=== PATIENT | male | born 1975 | race Caucasian/White ===

== ENCOUNTER 2017-05-05 10:04 | Inpatient (IN) | payer OTHER ==
[2017-05-05] VITALS (11 sets, daily range): BP systolic 112–152; BP diastolic 78–90
[~2017-05-05] VITALS: Ht 180.3 cm; Wt 75.7 kg
--- NOTE | ~2017-05-05 | EKG ---
[place] [address] [address] ELECTROCARDIOGRAM REPORT Name: LAURO OCONNELL Room #: 245-P ADM IN M.R.#: [id number] Admission: 05/05/17 Attend Phys: Donny Baptiste MD Discharge: Date of : 77 Report #: [id number] THIS REPORT FOR: //name// [facility] ED Test Date: 2017-05-05 Test Time: 10:11:38 Pat Name: LAURO OCONNELL Department: Room: [facility] Gender: M Hot Roller: ACE : 1975 Requested By: Yuri Berry Order Number: [id number] MD: Femi Cates Measurements Intervals [place] Rate: 134 P: 53 AR: 129 QRS: -78 QRSD: 86 T: 34 QT: 292 QTc: 436 Interpretive Statements Sinus tachycardia Atrial premature complexes Left anterior fascicular block Abnormal R-wave progression, late transition No previous ECG available for comparison Electronically Signed On 05-06-2017 9:49:38 CDT by Femi Cates [email or web address] <ELECTRONICALLY SIGNED> By: Femi Cates MD, [facility] 05/06/17 0949 1011 1011 Femi Cates MD, [facility] /EPI
[2017-05-05 10:44] LABS: HEMATOCRIT 47.7 % (42.0-52.0); HEMOGLOBIN 16.2 gm/dL (14.0-18.0); MCH 32.2 pg (26.0-34.0); MCHC 33.9 g/dL (28.0-37.0); MCV 94.9 fL (80.0-100.0); PLATELET COUNT 257 thou/uL (150-400); RBC 5.03 mil/uL (4.50-6.00); RDW 14.7 % (10.5-14.5); WBC 14.5 thou/uL (4.0-11.0)
[2017-05-05 10:46] LABS: MANUAL DIFF YES
[2017-05-05] MEDS ORDERED: LANTUS SUBQ (11:00)
[2017-05-05] MEDS ORDERED: HUMALOG100 UNIT/1 SUBQ (11:00)
[2017-05-05 11:01] LABS: ANION GAP 32 mmol/L (7-16); BUN 14 mg/dL (7-18); CHLORIDE 103 mmol/L (98-107); GLUCOSE 215 mg/dL (74-106); SODIUM 143 mmol/L (136-145)
[2017-05-05 11:04] LABS: CO2 8 mmol/L (21-32)
[2017-05-05 11:05] LABS: ABSOLUTE NEUTROPHILS 13.5 thou/uL (1.4-8.2); ANISOCYTOSIS SLIGHT; TOTAL CELL COUNT 100
[2017-05-05 11:10] LABS: ALBUMIN 2.8 g/dL (3.4-5.0); ALKALINE PHOSPHATASE 60 U/L (46-116); SGOT 34 U/L (15-37); SGPT 32 U/L (30-65); TOTAL BILIRUBIN 0.5 mg/dL (<0.1-1.0); TROPONIN-I < 0.04 ng/mL (<0.04-0.07)
[2017-05-05 11:14] LABS: ABG SAMPLE TYPE VENOUS; BE(vivo) -18.5 mmol/L (-2 to +3); HCO3 8.2 mmol/L (22.0-26.0); O2Hb VENOUS 93.9 (65.0-85.0); PCO2 VENOUS 23.4 mmHg (41.0-51.0); PO2 VENOUS 94.6 mmHg (35.0-45.0); sO2 VENOUS 95.4 % (65.0-85.0); tCO2 8.9 mmol/L (24.0-30.0)
[2017-05-05 11:15] LABS: LACTATE 12.87 mmol/L (0.5-2.0)
[2017-05-05 13:20] LABS: URINE BILIRUBIN NEGATIVE (Negative); URINE BLOOD TRACE (Negative); URINE COLOR YELLOW; URINE GLUCOSE-RANDOM* 2+ (Negative); URINE KETONES 3+ (Negative); URINE LEUKOCYTES-REFLEX NEGATIVE (Negative); URINE PROTEIN (DIPSTICK) TRACE (Negative); URINE SPECIFIC GRAVITY 1.025 (1.003-1.035); URINE UROBILINOGEN 0.2 E.U./dl (0.2-1.0)
[2017-05-05 13:27] LABS: AMP/METHAMP Negative (Negative); BARBITURATES Negative (Negative); BENZODIAZEPINES Negative (Negative); COCAINE Negative (Negative); METHADONE Negative (Negative); OPIATES POSITIVE (Negative); PCP Negative (Negative); THC Negative (Negative)
[2017-05-05 14:20] LABS: FOLIC ACID 5.8 ng/mL (8.6-58.9)
[2017-05-05 14:39] LABS: ABG SAMPLE TYPE ARTERIAL; HCO3 12.2 mmol/L (22.0-26.0); LACTATE 3.15 mmol/L (0.5-2.0); O2(CT) 20.3 mL/dL (15.0-23.0); O2Hb 95.9 % (92.0-98.0); PO2 96.6 mmHg (80.0-100.0); tCO2 12.9 mmol/L (24.0-30.0)
[2017-05-05 14:40] LABS: PCO2 24.6 mmHg (35.0-45.0); STICK SITE R.RADIAL; pH 7.312 (7.360-7.450)
[2017-05-05 16:46] LABS: CREATININE 1.4 mg/dL (0.7-1.3); MAGNESIUM 2.1 mg/dL (1.8-2.4)
[2017-05-05 16:49] LABS: CALCIUM 8.3 mg/dL (8.5-10.1); POTASSIUM 4.8 mmol/L (3.5-5.1)
[2017-05-05 22:41] LABS: ALBUMIN 3.5 g/dL (3.4-5.0); CALCIUM 8.4 mg/dL (8.5-10.1); CREATININE 1.3 mg/dL (0.7-1.3); PHOSPHORUS 0.9 mg/dL (2.5-4.9)
[2017-05-06] VITALS (18 sets, daily range): BP systolic 114–142; BP diastolic 72–101
[2017-05-06 04:54] LABS: HEMATOCRIT 40.9 % (42.0-52.0); MCHC 34.2 g/dL (28.0-37.0); MCV 93.4 fL (80.0-100.0); RBC 4.38 mil/uL (4.50-6.00); RDW 14.4 % (10.5-14.5); WBC 10.4 thou/uL (4.0-11.0)
[2017-05-06 05:04] LABS: CALCIUM 8.6 mg/dL (8.5-10.1); POTASSIUM 3.9 mmol/L (3.5-5.1)
[2017-05-07 03:46] VITALS: BP 148/99
[2017-05-07 07:31] VITALS: BP 131/83
[2017-05-07 10:32] LABS: ABSOLUTE NEUTROPHILS 5.5 thou/uL (1.4-8.2); BASOPHILS 0.3 % (0.0-2.0); EOSINOPHILS 0.5 % (0.0-3.0); HEMATOCRIT 51.4 % (42.0-52.0); MCH 32.4 pg (26.0-34.0); MCHC 32.4 g/dL (28.0-37.0); MONOCYTES 6.4 % (1.0-8.0); PLATELET COUNT 167 thou/uL (150-400); POLYS 72.8 % (36.0-66.0); RBC 5.13 mil/uL (4.50-6.00); RDW 15.4 % (10.5-14.5); WBC 7.6 thou/uL (4.0-11.0)
[2017-05-07 10:34] LABS: HEMOGLOBIN 16.6 gm/dL (14.0-18.0); MANUAL DIFF NO; MCV 100.2 fL (80.0-100.0)
[2017-05-07 10:40] LABS: CALCIUM 9.7 mg/dL (8.5-10.1); POTASSIUM 5.3 mmol/L (3.5-5.1)
[2017-05-07 11:24] VITALS: BP 125/83
[2017-05-07 15:10] VITALS: BP 127/89
[2017-05-07 16:57] LABS: CALCIUM 8.7 mg/dL (8.5-10.1); CREATININE 1.1 mg/dL (0.7-1.3); POTASSIUM 4.5 mmol/L (3.5-5.1)
[2017-05-07 19:20] VITALS: BP 134/88
[2017-05-08 05:04] LABS: HEMATOCRIT 42.5 % (42.0-52.0); MCHC 33.7 g/dL (28.0-37.0); RBC 4.48 mil/uL (4.50-6.00); RDW 14.8 % (10.5-14.5); WBC 4.2 thou/uL (4.0-11.0)
[2017-05-08 05:06] LABS: HEMOGLOBIN 14.3 gm/dL (14.0-18.0); MCV 95.1 fL (80.0-100.0)
[2017-05-08 05:15] LABS: CALCIUM 8.7 mg/dL (8.5-10.1); CREATININE 0.8 mg/dL (0.7-1.3); POTASSIUM 4.6 mmol/L (3.5-5.1)
[2017-05-08 06:12] VITALS: BP 152/98
[2017-05-08 07:37] VITALS: BP 147/91
[2017-05-08 10:19] VITALS: BP 147/91
== END 2017-05-08 12:15 | disposition home or self-care (01) | DRG 896 ==
LOC: ER 10:04 → EROBS 13:05 → 4W 13:05 → ICU 14:54 → 4W 05-06 15:24
PROVIDERS: Hospitalist; Physician Assistant
DX: F10.239 Alcohol dependence with withdrawal, unspecified (principal); E10.10 Type 1 diabetes mellitus with ketoacidosis without coma; E43 Unspecified severe protein-calorie malnutrition; E87.6 Hypokalemia; E83.42 Hypomagnesemia; Y90.0 Blood alcohol level of less than 20 mg/100 ml; D72.829 Elevated white blood cell count, unspecified; Z79.4 Long term (current) use of insulin; Z68.23 Body mass index [BMI] 23.0-23.9, adult; Z91.14 Patient's other noncompliance with medication regimen
CPT/HCPCS: 10045; 10078

== ENCOUNTER 2017-06-26 15:52 | Inpatient (IN) | payer OTHER ==
[~2017-06-26] VITALS: Ht 180.3 cm; Wt 78.5 kg
[2017-06-26] VITALS (18 sets, daily range): BP systolic 124–164; BP diastolic 59–87
--- NOTE | ~2017-06-26 | EKG ---
[address] [place] [address] ELECTROCARDIOGRAM REPORT Name: LAURO OCONNELL Room #: 237-P ADM IN M.R.#: [id number] Admission: 06/26/17 Attend Phys: Demetris Harris DO Discharge: Date of : 77 Report #: [id number] THIS REPORT FOR: //name// [facility] ED Test Date: 2017-06-26 Test Time: 16:02:29 Pat Name: LAURO OCONNELL Department: Room: 237 Gender: M Pulmonary Physician: [id number] : 1975 Requested By: Yuri Berry Order Number: [id number] MD: Isacc Osborne Measurements Intervals [place] Rate: 137 P: NE: QRS: -34 QRSD: 96 T: 22 QT: 284 QTc: 429 Interpretive Statements Atrial flutter/fibrillation Left axis deviation ST elev, probable normal early repol pattern Baseline wander in lead(s) V2 Electronically Signed On 06-26-2017 22:47:16 CDT by Isacc Osborne [email or web address] <ELECTRONICALLY SIGNED> By: Isacc Osborne MD 06/26/17 2247 160 01 Isacc Osborne MD /GERRY
[~2017-06-26 15:52] MED LIST: HUMALOG100 UNIT/1 SUBQ; LANTUS SUBQ
[2017-06-26 16:13] LABS: HEMATOCRIT 44.8 % (42.0-52.0); HEMOGLOBIN 13.8 gm/dL (14.0-18.0); MCH 32.8 pg (26.0-34.0); MCHC 30.8 g/dL (28.0-37.0); MCV 106.7 fL (80.0-100.0); PLATELET COUNT 193 thou/uL (150-400); RDW 15.8 % (10.5-14.5); WBC 16.9 thou/uL (4.0-11.0)
[2017-06-26 16:19] LABS: MANUAL DIFF YES
[2017-06-26 16:29] LABS: ABG SAMPLE TYPE VENOUS; BE(vivo) -29.2 mmol/L (-2 to +3); HCO3 3.3 mmol/L (22.0-26.0); LACTATE 18.04 mmol/L (0.5-2.0); O2(CT) 17.8 mL/dL (15.0-23.0); O2Hb VENOUS 83.7 (65.0-85.0); PCO2 VENOUS 18.5 mmHg (41.0-51.0); PO2 VENOUS 69.4 mmHg (35.0-45.0); STICK SITE LINE; sO2 VENOUS 77.9 % (65.0-85.0); tCO2 3.9 mmol/L (24.0-30.0)
[2017-06-26 16:31] LABS: BUN 22 mg/dL (7-18); CHLORIDE 87 mmol/L (98-107); CREATININE 3.1 mg/dL (0.7-1.3); GLUCOSE 494 mg/dL (74-106); SODIUM 133 mmol/L (136-145)
[2017-06-26 16:33] LABS: ABSOLUTE NEUTROPHILS 13.7 thou/uL (1.4-8.2); TOTAL CELL COUNT 100
[2017-06-26 16:34] LABS: ANISOCYTOSIS 1+; POLYCHROMASIA OCCASIONAL
[2017-06-26 16:36] LABS: ALBUMIN 3.6 g/dL (3.4-5.0); ALKALINE PHOSPHATASE 140 U/L (46-116); ANION GAP 41 mmol/L (7-16); SGOT 108 U/L (15-37); SGPT 72 U/L (30-65); TOTAL BILIRUBIN 0.4 mg/dL (<0.1-1.0); TOTAL PROTEIN 6.4 g/dL (6.4-8.2)
[2017-06-26 16:38] LABS: CO2 < 5 mmol/L (21-32); POTASSIUM 6.1 mmol/L (3.5-5.1)
[2017-06-26 16:39] LABS: CALCIUM 12.1 mg/dL (8.5-10.1)
[2017-06-26 18:28] LABS: URINE BILIRUBIN NEGATIVE (Negative); URINE BLOOD 2+ (Negative); URINE COLOR YELLOW; URINE GLUCOSE-RANDOM* 3+ (Negative); URINE KETONES 2+ (Negative); URINE LEUKOCYTES-REFLEX NEGATIVE (Negative); URINE PROTEIN (DIPSTICK) 2+ (Negative); URINE SPECIFIC GRAVITY 1.025 (1.003-1.035); URINE UROBILINOGEN 0.2 E.U./dl (0.2-1.0)
[2017-06-26 18:35] LABS: AMP/METHAMP Negative (Negative); BARBITURATES Negative (Negative); BENZODIAZEPINES Negative (Negative); COCAINE Negative (Negative); METHADONE Negative (Negative); OPIATES POSITIVE (Negative); PCP Negative (Negative); THC Negative (Negative)
[2017-06-26 18:48] LABS: CASTS None Seen /LPF (None Seen); CRYSTALS None Seen /LPF (None Seen); SQUAMOUS 0-3 Few /LPF (0-3); URINE RBC 0-2 Rare /HPF (0-2); URINE WBC-REFLEX None Seen /HPF (0-5)
[2017-06-26 18:58] LABS: FOLIC ACID 4.4 ng/mL (8.6-58.9)
[2017-06-26 19:57] LABS: ABSOLUTE NEUTROPHILS 9.6 thou/uL (1.4-8.2); BASOPHILS 0.1 % (0.0-2.0); HEMATOCRIT 40.1 % (42.0-52.0); HEMOGLOBIN 13.1 gm/dL (14.0-18.0); LYMPHOCYTES 10.3 % (24.0-44.0); MCHC 32.7 g/dL (28.0-37.0); MONOCYTES 6.8 % (1.0-8.0); PLATELET COUNT 131 thou/uL (150-400); POLYS 82.8 % (36.0-66.0); RBC 3.97 mil/uL (4.50-6.00); WBC 11.6 thou/uL (4.0-11.0)
[2017-06-26 20:00] LABS: MCV 101.8 fL (80.0-100.0)
[2017-06-26 20:01] LABS: MANUAL DIFF NO
[2017-06-26 20:16] LABS: CALCIUM 10.6 mg/dL (8.5-10.1); CREATININE 2.6 mg/dL (0.7-1.3); PHOSPHORUS 7.6 mg/dL (2.5-4.9); POTASSIUM 4.3 mmol/L (3.5-5.1)
[2017-06-26 20:35] LABS: ABG SAMPLE TYPE ARTERIAL; BE(vivo) -10.7 mmol/L (-2 to +3); HCO3 14.4 mmol/L (22.0-26.0); O2(CT) 18.1 mL/dL (15.0-23.0); O2Hb 94.6 % (92.0-98.0); PCO2 30.2 mmHg (35.0-45.0); PO2 79.6 mmHg (80.0-100.0); sO2 94.8 % (92.0-98.0); tCO2 15.4 mmol/L (24.0-30.0)
[2017-06-26 20:36] LABS: LACTATE 5.94 mmol/L (0.5-2.0); STICK SITE L.RADIAL; pH 7.297 (7.360-7.450)
[2017-06-27] VITALS (30 sets, daily range): BP systolic 141–176; BP diastolic 82–100
[2017-06-27 00:11] LABS: CALCIUM 10.3 mg/dL (8.5-10.1); POTASSIUM 4.3 mmol/L (3.5-5.1)
[2017-06-27 00:15] LABS: MAGNESIUM 1.7 mg/dL (1.8-2.4); PHOSPHORUS 2.2 mg/dL (2.5-4.9)
[2017-06-27 04:01] LABS: HEMATOCRIT 37.7 % (42.0-52.0); HEMOGLOBIN 12.7 gm/dL (14.0-18.0); MCH 32.6 pg (26.0-34.0); MCHC 33.7 g/dL (28.0-37.0); RBC 3.9 mil/uL (4.50-6.00); RDW 14.2 % (10.5-14.5); WBC 6.7 thou/uL (4.0-11.0)
[2017-06-27 04:03] LABS: MCV 96.7 fL (80.0-100.0)
[2017-06-27 04:07] LABS: ALBUMIN 3.1 g/dL (3.4-5.0); POTASSIUM 3.6 mmol/L (3.5-5.1)
[2017-06-27 04:30] LABS: CALCIUM 10.2 mg/dL (8.5-10.1); MAGNESIUM 2.4 mg/dL (1.8-2.4); PHOSPHORUS 1.6 mg/dL (2.5-4.9)
[2017-06-27 05:08] LABS: FREE T4 0.68 ng/dL (0.82-1.77)
[2017-06-27 10:33] LABS: ALBUMIN 3.6 g/dL (3.4-5.0); CREATININE 1.4 mg/dL (0.7-1.3); MAGNESIUM 2.2 mg/dL (1.8-2.4); PHOSPHORUS 2.5 mg/dL (2.5-4.9); POTASSIUM 4.3 mmol/L (3.5-5.1)
[2017-06-28] VITALS (15 sets, daily range): BP systolic 133–163; BP diastolic 83–104
[2017-06-28 05:45] LABS: ABSOLUTE NEUTROPHILS 4.3 thou/uL (1.4-8.2); BASOPHILS 0.2 % (0.0-2.0); EOSINOPHILS 0.5 % (0.0-3.0); HEMATOCRIT 36.2 % (42.0-52.0); HEMOGLOBIN 12.4 gm/dL (14.0-18.0); LYMPHOCYTES 17.5 % (24.0-44.0); MANUAL DIFF NO; MCH 33.5 pg (26.0-34.0); MCHC 34.3 g/dL (28.0-37.0); MCV 97.6 fL (80.0-100.0); PLATELET COUNT 89 thou/uL (150-400); POLYS 74.8 % (36.0-66.0); RBC 3.71 mil/uL (4.50-6.00); RDW 14.6 % (10.5-14.5); WBC 5.7 thou/uL (4.0-11.0)
[2017-06-28 05:57] LABS: ALBUMIN 2.9 g/dL (3.4-5.0); CALCIUM 8.3 mg/dL (8.5-10.1); PHOSPHORUS 1.5 mg/dL (2.5-4.9); POTASSIUM 3.6 mmol/L (3.5-5.1); TOTAL BILIRUBIN 0.5 mg/dL (<0.1-1.0); TOTAL PROTEIN 5.1 g/dL (6.4-8.2)
[2017-06-29 04:30] VITALS: BP 174/99
[2017-06-29 08:57] VITALS: BP 147/87
[2017-06-29 12:11] VITALS: BP 147/87
[2017-06-29 15:40] VITALS: BP 149/94
[2017-06-29 19:45] VITALS: BP 151/95
[2017-06-30 03:51] VITALS: BP 155/99
[2017-06-30 08:08] VITALS: BP 161/92
[2017-06-30 14:32] VITALS: BP 147/87
[2017-06-30 14:56] VITALS: BP 147/87
== END 2017-06-30 15:00 | disposition home or self-care (01) | DRG 637 ==
LOC: ER 15:52 → ICU 17:32 → EROBS 17:32 → ICU 18:54 → 4S 06-28 15:40 → ENTRNSPT 06-30 14:51 → 4S 06-30 15:00
PROVIDERS: Family Medicine; Physician Assistant
DX: E10.10 Type 1 diabetes mellitus with ketoacidosis without coma (principal); E43 Unspecified severe protein-calorie malnutrition; F10.20 Alcohol dependence, uncomplicated; Z79.4 Long term (current) use of insulin; Z68.24 Body mass index [BMI] 24.0-24.9, adult
CPT/HCPCS: 10078; 10100